=== PATIENT | male | born 1945 | race Caucasian/White ===

== ENCOUNTER 2023-12-30 15:40 | Emergency (ER) | payer MEDICARE, BC ==
[~2023-12-30] VITALS: Ht 182.9 cm; Wt 66.7 kg
[2023-12-30] MEDS ORDERED: TIMOXEOPD OP (15:50)
[2023-12-30] MEDS ORDERED: ASPI81CH33 PO (15:50)
[2023-12-30] MEDS ORDERED: FAMO40TA3 PO (15:50)
[2023-12-30] MEDS ORDERED: AUGM500T34 PO ×2 (19:00→19:35)
[2023-12-30 19:04] VITALS: BP 120/77; TEMP 99.3; O2SAT 96
== END 2023-12-30 19:37 | disposition home or self-care (01) ==
LOC: M ED 15:40
DX: J40 Bronchitis, not specified as acute or chronic (principal); R05.9 Cough, unspecified; Z79.2 Long term (current) use of antibiotics; Z79.82 Long term (current) use of aspirin; Z79.899 Other long term (current) drug therapy